=== PATIENT | male | born 1960 | race Caucasian/White ===

== ENCOUNTER 2018-11-06 15:20 | Emergency (ER) | payer BC, OTHER ==
[~2018-11-06] VITALS: Ht 172.7 cm; Wt 111.4 kg
[2018-11-06 15:46] LABS: BASO # 0.1 10^3/uL (0.0-0.2); BASO % 0.5 % (0.0-1.0); EOS % 0.3 % (0.0-3.0); HEMATOCRIT 51.1 % (42.0-52.0); HEMOGLOBIN 18.1 g/dl (13.5-17.5); LYMPH # 2.3 10^3/uL (1.5-4.5); LYMPH % 20.9 % (24.0-44.0); MEAN CORPUSCULAR HEMOGLOBIN 31.5 pg (27.0-33.0); MEAN CORPUSCULAR HGB CONC 35.4 g/dl (32.0-36.5); MEAN CORPUSCULAR VOLUME 88.9 fl (80.0-96.0); MONO # 0.9 10^3/uL (0.0-0.8); MONO % 7.8 % (0.0-5.0); NEUTROPHILS # 7.8 10^3/uL (1.8-7.7); NEUTROPHILS % 70.1 % (36.0-66.0); PLATELET COUNT, AUTOMATED 220 10^3/uL (150-450); RED BLOOD COUNT 5.75 10^6/uL (4.30-6.10); WHITE BLOOD COUNT 11.1 10^3/uL (4.0-10.0)
[2018-11-06] MEDS ORDERED: ENAL20TA PO (15:56)
[2018-11-06] MEDS ORDERED: METF10004 PO (15:56)
[2018-11-06] MEDS ORDERED: CHLO125TA PO (15:56)
[2018-11-06] MEDS ORDERED: METO1TAB32 PO (15:56)
[2018-11-06] MEDS ORDERED: ECOT81TA5 PO (15:57)
[2018-11-06] MEDS ORDERED: LORA2TAB9 PO (15:58)
[2018-11-06] MEDS ORDERED: ISOVUE-370 76% 100ML VIAL (Q9967) As Ordered ONE (16:00)
--- NOTE | 2018-11-06 16:10 | REP ---
Portable chest, single AP view, the patient upright: Comparison is the PA and lateral chest of 08/10 2007. Lung johnson are clear. Cardiac size is normal. The reggie are unremarkable. There is a few centimeter nodule just superior to the aortic arch, not significantly changed from 08/10/2007. Impression: There are no acute cardiopulmonary findings. There is a nodule above the aortic described. Electronically Signed by Faheem Infante MD 11/06/2018 04:02 P
[2018-11-06 16:24] LABS: ALBUMIN 3.9 GM/DL (3.2-5.2); ALT/SGPT 41 U/L (12-78); BILIRUBIN,DIRECT 0.2 MG/DL (0.0-0.2); BILIRUBIN,TOTAL 0.6 MG/DL (0.2-1.0); BLOOD UREA NITROGEN 19 MG/DL (7-18); CALCIUM LEVEL 9.9 MG/DL (8.5-10.1); CARBON DIOXIDE LEVEL 29 MEQ/L (21-32); CHLORIDE LEVEL 100 MEQ/L (98-107); CK-MB VALUE MASS 1.2 NG/ML (<3.6); CPK CREATINE PHOSPHOKINASE 120 U/L (39-308); CREATININE FOR GFR 1.09 MG/DL (0.70-1.30); GLOMERULAR FILTRATION RATE > 60.0 (>56); GLUCOSE, FASTING 194 MG/DL (70-100); LIPASE 125 U/L (73-393); NT-PRO BNP < 5 PG/ML (<125); POTASSIUM SERUM 3.5 MEQ/L (3.5-5.1); SODIUM LEVEL 137 MEQ/L (136-145); TOTAL PROTEIN 8.3 GM/DL (6.4-8.2); TROPONIN I < 0.02 NG/ML (< 0.10)
--- NOTE | 2018-11-06 16:45 | REP ---
CT of the chest with IV contrast for aortic dissection: There are no comparison studies. The thoracic aorta is adequately opacified. There is no thoracic aortic dissection involving the ascending aorta, transverse aorta or descending aorta. The pulmonary arteries are adequately opacified. There are no pulmonary emboli. There are no infiltrates or pleural effusions. There are no nodules or masses. There is no mediastinal, hilar or axillary lymph node enlargement. Cardiac size is normal. There is no pericardial effusion. Impression: There is no thoracic aortic dissection. Otherwise, negative CT study of the chest. Electronically Signed by Faheem Infante MD 11/06/2018 04:36 P
--- NOTE | 2018-11-06 16:56 | REP ---
CT of the abdomen and pelvis with IV contrast for aortic dissection. The study is performed contiguous with the chest CT. The abdominal aorta is adequately opacified. There is no abdominal aortic dissection. The hepatic parenchyma, gallbladder, pancreas, spleen, adrenals, and kidneys are unremarkable. There are multiple mildly dilated small bowel loops with wall thickening in the left upper quadrant compatible with enteritis in the appropriate clinical setting. There is mesenteric stranding and wall thickening of the the cecum which may represent cecal inflammation or ischemia. I do not identify cecal diverticula. The appendix has a normal appearance. Pelvis: There is a right hip arthroplasty resulting in beam hardening and image degradation. The bladder is grossly unremarkable. The pelvic bowel loops are unremarkable except for the cecum. There is no ascites or adenopathy. Impression: There is no abdominal aortic dissection. There are findings compatible with enteritis of proximal small bowel loops in the left upper quadrant. There are findings compatible, nonspecific cecal inflammation in the right lower quadrant, possibly a ischemia or inflammation. The appendix is unremarkable. No cecal diverticula are identified. There is no ascites or adenopathy. Electronically Signed by Faheem Infante MD 11/06/2018 04:47 P
[2018-11-06] MEDS ORDERED: GI COCKTAIL 50ML BTL(HYOSCYAMINE/MAALOX/LIDOCAINE VISCOUS)(1:3:1) PO ONE (17:00)
[2018-11-06] MEDS ORDERED: PANTOPRAZOLE 40MG INJ (PROTONIX) (C9113) IV ONE (18:00)
[2018-11-06] MEDS ORDERED: METOCLOPRAMIDE INJ 10MG/2ML VIAL (J2765) IV ONE (18:00)
[2018-11-06] MEDS ORDERED: SUCRALFATE SUSP 1GM/10ML UD PO ONE (18:00)
[2018-11-06] MEDS ORDERED: SUCR1SS PO (18:38)
[2018-11-06] MEDS ORDERED: PEPC1TAB5 PO (18:39)
[2018-11-06 19:18] LABS: CK-MB VALUE MASS 1.1 NG/ML (<3.6); CPK CREATINE PHOSPHOKINASE 111 U/L (39-308); MB/CK RELATIVE INDEX 0.99 (< OR =4); TROPONIN I < 0.02 NG/ML (< 0.10)
[2018-11-06 20:26] VITALS: BP 145/65
--- NOTE | 2018-11-06 21:13 | ECGEPIP ---
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
--- NOTE | 2018-11-06 21:20 | ECGEPIP ---
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
--- NOTE | 2018-11-07 19:55 | ED PDOC ---
Post-Departure Follow-Up cxr also faxed to Zelda Reveles MD Nov 07, 2018 19:55
--- NOTE | 2018-11-07 19:55 | ED PDOC ---
Post-Departure Follow-Up dr flower faxed formal report of cta abd for fu Zelda Vigil MD Nov 07, 2018 19:55
== END 2018-11-06 20:52 | disposition home or self-care (01) ==
LOC: M ED 15:20
DX: R07.9 Chest pain, unspecified (principal); R11.10 Vomiting, unspecified; E11.9 Type 2 diabetes mellitus without complications; I10 Essential (primary) hypertension; Z79.899 Other long term (current) drug therapy; Z79.84 Long term (current) use of oral hypoglycemic drugs; Z79.82 Long term (current) use of aspirin; Z88.0 Allergy status to penicillin
CPT/HCPCS: 36415; 71045; 71275; 74174; 80047; 80048; 80076; 82550; 82553; 83690; 83880; 84443; 84484; 85025; 93005; 93041; 94760; 96374; 96375; 99285; C9113; J2765; Q9967

== ENCOUNTER → 2019-01-22 | Outpatient (CLI) | payer BC, OTHER ==
[~2019-01-22] MED LIST: CHLO125TA PO; E-Z-GAS II EFFERVESCENT PACKET (SODIUM BICARB./CITRIC ACID/SIMETHICONE) As Ordered ONE; E-Z-HD 98% w/w 340GM SUSP BTL As Ordered ONE; E-Z-PAQUE 96% w/w SUSP 176GM BTL As Ordered ONE; ECOT81TA5 PO; ENAL20TA PO; LORA2TAB9 PO; METF10004 PO; METO1TAB32 PO; PEPC1TAB5 PO; SUCR1SS PO
--- NOTE | 2019-01-25 14:53 | REP ---
Upper GI air contrast The procedure was performed under the direct supervision of Dr. Madrigal. The images were reviewed with Dr. Madrigal The tmd teacher assistant film shows no organomegaly or pathological masses. The intestinal gas pattern is non-specific. The patient is status post right hip arthroplasty. Liquid barium and gas producing crystals were given in the erect position as well as liquid barium in the prone oblique position in order to perform a double contrast upper GI examination. During the oral and pharyngeal stages of deglutition there is aspiration. There is contrast seen extending into the right mainstem bronchus. There are esophageal transport there are mild tertiary waves demonstrated. There is no esophagitis, stricture, mucosal ring or hiatal hernia. Gastroesophageal reflux is not demonstrated on this examination. The stomach coyne are normally outlined . The rugal folds are smooth and regular. There is no gastritis neoplasm or ulcer disease. The duodenal coyne are normally outlined . The mucosal folds are smooth and regular. There is no duodenitis pancreatitis peptic ulcer disease or neoplasm. The visualized portion of the proximal small bowel appears normal in course and caliber. Impression: 1. There is aspiration with contrast seen extending into the right mainstem bronchus. 2. Mild tertiary waves. 1.4 minutes of fluoro time was utilized for this procedure. Electronically Signed by SRINIVASA Hernandez 01/22/2019 02:58 P Electronically Signed by Faheem Madrigal MD 01/25/2019 02:44 P
== END ==
LOC: M RAD 09:24
PROVIDERS: ATTEND Specialist
DX: K21.9 Gastro-esophageal reflux disease without esophagitis (principal)

== ENCOUNTER → 2024-06-02 | Outpatient (CLI) | payer BC, OTHER ==
[~2024-06-02] MED LIST changes: -E-Z-GAS II EFFERVESCENT PACKET (SODIUM BICARB./CITRIC ACID/SIMETHICONE) As Ordered ONE; -E-Z-HD 98% w/w 340GM SUSP BTL As Ordered ONE; -E-Z-PAQUE 96% w/w SUSP 176GM BTL As Ordered ONE; +ENAL1TAB52 PO; -ENAL20TA PO; +LORA2TAB14 PO; -LORA2TAB9 PO
== END ==
LOC: M RAD 16:18
PROVIDERS: ATTEND Physician Assistant Surgical
DX: R10.9 Unspecified abdominal pain (principal)

== ENCOUNTER 2024-11-14 10:13 | Inpatient (IN) | payer BC, OTHER ==
[~2024-11-14] VITALS: Ht 170.2 cm; Wt 106.5 kg
[2024-11-14 11:59] LABS: BASO # 0.1 10^3/uL (0.0-0.2); BASO % 0.4 % (0.0-1.0); EOS # 0.1 10^3/uL (0.0-0.5); EOS % 0.7 % (0.0-3.0); LYMPH # 2.7 10^3/uL (1.5-5.0); LYMPH % 19.7 % (24.0-44.0); MONO # 1.1 10^3/uL (0.0-0.8); MONO % 8.2 % (2.0-8.0); NEUTROPHILS # 9.8 10^3/uL (1.5-8.5); NEUTROPHILS % 70.8 % (36.0-66.0); PLATELET COUNT, AUTOMATED 252 10^3/uL (150-450)
[2024-11-14 12:05] LABS: ERYTHROCYTE SEDIMENTATION RATE 9 mm/hr (0-20)
[2024-11-14 12:14] LABS: KETONE, URINE AUTO RFX NEGATIVE (NEGATIVE); LEUKOCYTE ESTERASE UR AUTO RFX NEGATIVE (NEGATIVE); MUCUS, URINE RFX SMALL (NEGATIVE); NITRITE, URINE AUTO RFX NEGATIVE (NEGATIVE); RBC, URINE AUTO RFX 0 /HPF (0-3); SQUAM EPITHELIAL CELL UR AURFX 0 /HPF (0-6); WBC, URINE AUTO RFX 0 /HPF (0-3)
[2024-11-14] MEDS: ONDANSETRON 4MG 2ML VIAL IV ONE (12:36)
[2024-11-14] MEDS: NS (Normal Saline) 0.9% 1,000 ML IV ONE (12:37)
[2024-11-14 12:44] LABS: ALT/SGPT 57 U/L (7.0-40); AST/SGOT 31 U/L (<34); C REACTIVE PROTEIN QUANTITATIV < 0.50 MG/DL (<1.0); CALCIUM LEVEL 8.9 MG/DL (8.3-10.6); CARBON DIOXIDE LEVEL 20 MMOL/L (20-31); CHLORIDE LEVEL 100 MMOL/L (98-107); CREATININE FOR GFR 0.83 MG/DL (0.70-1.30); GLOMERULAR FILTRATION RATE > 90.0 (>49); POTASSIUM SERUM 3.4 MMOL/L (3.5-5.1); SODIUM LEVEL 136 MMOL/L (136-145)
[2024-11-14] MEDS ORDERED: ISOVUE-370 76% 100 ML VIAL As Ordered ONE (13:33)
[2024-11-14] MEDS: NS 0.9% IV ONE (16:13)
[2024-11-14] MEDS: [UNRECOGNIZED DRUG - OTHER] IV ONE (16:13)
[2024-11-14] MEDS ORDERED: OMEP-611 PO (20:24)
[2024-11-14] MEDS ORDERED: ATOR1TAB19 PO (20:24)
[2024-11-14] MEDS ORDERED: VENL150C43 PO (20:24)
[2024-11-14] MEDS ORDERED: TRUL0.5I INJ (20:24)
[2024-11-14] MEDS ORDERED: METOPROLOL SUCC. 25 MG *XL* TAB PO SCH (20:25)
[2024-11-14] MEDS ORDERED: BUSP5TA PO (20:28)
[2024-11-14] MEDS ORDERED: GLUCAGON INJ 1 MG VIAL SC PRN (20:30)
[2024-11-14] MEDS ORDERED: OMEPRAZOLE 20MG CAP PO PRN (20:30)
[2024-11-14] MEDS ORDERED: DEXTROSE 50% 50 ML SYRINGE IV PRN (20:30)
[2024-11-14] MEDS ORDERED: HOME MED LIST COMPLETE! XX SCH (20:30)
[2024-11-14] MEDS ORDERED: GLUCOSE 4 GM CHEW PO PRN (20:30)
[2024-11-14] MEDS: metroNIDAZOLE 500 MG in IV 1 EA IV SCH (20:32)
[2024-11-14] MEDS: LR 1,000 ML IV SCH (20:33)
[2024-11-14] MEDS ORDERED: ALBUTEROL SULFATE 2.5 MG/0.5 ML INH CONCENTRATE NEB SOLN NEB PRN (20:35)
[2024-11-14 20:38] LABS: MAGNESIUM LEVEL 1.5 MG/DL (1.8-2.4)
[2024-11-14] MEDS: INSULIN LISPRO (NovoLOG) PER UNIT SC SCH (20:55)
[2024-11-14] MEDS: ATORVASTATIN 10 MG TAB PO SCH (21:06)
[2024-11-14] MEDS: KCL 10MEQ/100ML SWI (KRUN) 10 MEQ in IV 1 EA IV SCH (21:07)
[2024-11-14] MEDS ORDERED: LOPERAMIDE 2 MG CAPLET PO SCH (21:10)
[2024-11-14] MEDS ORDERED: ONDANSETRON 4MG 2ML VIAL IV PRN (21:10)
[2024-11-14] MEDS ORDERED: LOPERAMIDE 2 MG CAPLET PO PRN (21:10)
[2024-11-14 23:30] VITALS: BP 146/80; TEMP 97.7; O2SAT 96
[2024-11-15] VITALS (7 sets, daily range): BP systolic 136–147; BP diastolic 74–84; TEMP 97.3–98.1; O2SAT 92–98
[2024-11-15] MEDS: MAG SULF 1GM/100ML (MAG RUN) 1 GM in IV 1 EA IV SCH
[2024-11-15 07:12] LABS: PLATELET COUNT, AUTOMATED 178 10^3/uL (150-450)
[2024-11-15 07:40] LABS: ALT/SGPT 42 U/L (7.0-40); AST/SGOT 27 U/L (<34); CALCIUM LEVEL 7.4 MG/DL (8.3-10.6); CARBON DIOXIDE LEVEL 26 MMOL/L (20-31); CHLORIDE LEVEL 102 MMOL/L (98-107); CREATININE FOR GFR 0.81 MG/DL (0.70-1.30); GLOMERULAR FILTRATION RATE > 90.0 (>49); MAGNESIUM LEVEL 1.8 MG/DL (1.8-2.4); POTASSIUM SERUM 2.9 MMOL/L (3.5-5.1); SODIUM LEVEL 140 MMOL/L (136-145)
[2024-11-15] MEDS: ACETAMINOPHEN 325 MG TAB PO PRN (08:26)
[2024-11-15] MEDS: METOPROLOL SUCC. 25 MG *XL* TAB PO SCH (08:27)
[2024-11-15] MEDS: VENLAFAXINE **XR** 75MG CAPSULE PO SCH (08:27)
[2024-11-15] MEDS: ASPIRIN 81 MG ENTERIC TABLET PO SCH (08:28)
[2024-11-15] MEDS: INSULIN LISPRO (NovoLOG) PER UNIT SC SCH (08:28)
[2024-11-15] MEDS: CHLORTHALIDONE 12.5 MG PER 1/2 TABLET PO SCH (08:28)
[2024-11-15] MEDS: ENALAPRIL MALEATE 10 MG TAB PO SCH (08:28)
[2024-11-15] MEDS: HEPARIN SOD 5000 UNITS/ML 1 ML VIAL/SYRINGE SC SCH (08:29)
[2024-11-15] MEDS: POTASSIUM CHLORIDE 10MEQ SR TABLET PO SCH (09:17)
[2024-11-15 14:42] LABS: CALCIUM LEVEL 8.4 MG/DL (8.3-10.6); CARBON DIOXIDE LEVEL 31 MMOL/L (20-31); CHLORIDE LEVEL 100 MMOL/L (98-107); CREATININE FOR GFR 0.78 MG/DL (0.70-1.30); GLOMERULAR FILTRATION RATE > 90.0 (>49); POTASSIUM SERUM 3.5 MMOL/L (3.5-5.1); SODIUM LEVEL 139 MMOL/L (136-145)
[2024-11-16] VITALS: BP 146/84; TEMP 97.7; O2SAT 98
[2024-11-16 03:58] VITALS: BP 144/86; TEMP 97.7; O2SAT 95
[2024-11-16 04:00] VITALS: BP 144/86; TEMP 97.7; O2SAT 95
[2024-11-16 06:36] LABS: PLATELET COUNT, AUTOMATED 167 10^3/uL (150-450)
[2024-11-16 07:40] LABS: ALT/SGPT 37 U/L (7.0-40); AST/SGOT 21 U/L (<34); CALCIUM LEVEL 8.4 MG/DL (8.3-10.6); CARBON DIOXIDE LEVEL 28 MMOL/L (20-31); CHLORIDE LEVEL 101 MMOL/L (98-107); CREATININE FOR GFR 0.72 MG/DL (0.70-1.30); GLOMERULAR FILTRATION RATE > 90.0 (>49); MAGNESIUM LEVEL 1.8 MG/DL (1.8-2.4); SODIUM LEVEL 142 MMOL/L (136-145)
[2024-11-16 07:41] LABS: POTASSIUM SERUM 2.9 MMOL/L (3.5-5.1)
[2024-11-16 08:00] VITALS: BP 145/84; TEMP 98.1; O2SAT 97
[2024-11-16] MEDS: POTASSIUM CHLORIDE 10MEQ SR TABLET PO SCH (08:16)
[2024-11-16] MEDS: KCL 10MEQ/100ML SWI (KRUN) 10 MEQ in IV 1 EA IV SCH (08:17)
[2024-11-16 09:37] VITALS: BP 145/84
[2024-11-16 12:00] VITALS: BP 127/78; TEMP 97.3; O2SAT 96
[2024-11-16] MEDS ORDERED: METR-265 PO (14:29)
[2024-11-16] MEDS ORDERED: POTA10CA70 PO (14:29)
[2024-11-16] MEDS ORDERED: PROBCAP14 PO (14:31)
[2024-11-16 15:02] LABS: CALCIUM LEVEL 8.6 MG/DL (8.3-10.6); CARBON DIOXIDE LEVEL 29 MMOL/L (20-31); CHLORIDE LEVEL 98 MMOL/L (98-107); CREATININE FOR GFR 0.72 MG/DL (0.70-1.30); GLOMERULAR FILTRATION RATE > 90.0 (>49); POTASSIUM SERUM 3.7 MMOL/L (3.5-5.1); SODIUM LEVEL 139 MMOL/L (136-145)
== END 2024-11-16 16:25 | disposition home or self-care (01) | DRG 248 ==
LOC: M ED 10:13 → M ED INP 20:58 → M MSPAV 23:30
PROVIDERS: ADMIT Student in an Organized Health Care Education/Training Program; ATTEND Student in an Organized Health Care Education/Training Program
DX: A07.1 Giardiasis [lambliasis] (principal); E83.42 Hypomagnesemia; I10 Essential (primary) hypertension; E87.6 Hypokalemia; E11.9 Type 2 diabetes mellitus without complications; E78.5 Hyperlipidemia, unspecified; F39 Unspecified mood [affective] disorder; J45.909 Unspecified asthma, uncomplicated; E66.9 Obesity, unspecified; Z96.641 Presence of right artificial hip joint; Z79.82 Long term (current) use of aspirin; Z79.84 Long term (current) use of oral hypoglycemic drugs; Z79.899 Other long term (current) drug therapy; Z88.0 Allergy status to penicillin